=== PATIENT | male | born 1955 | race Caucasian/White ===

== ENCOUNTER 2024-08-30 15:47 | Emergency (ER) | payer OTHER, MEDICAID ==
[~2024-08-30] VITALS: Ht 170.2 cm; Wt 136.0 kg
[2024-08-30 15:49] VITALS: O2SAT 99
[2024-08-30 21:18] VITALS: BP 155/78; PULSE 59; RESP 16; TEMP 36.6; O2SAT 98
== END 2024-08-30 21:20 | disposition home or self-care (01) ==
LOC: ER 15:47
DX: S06.0XAA Concussion with loss of consciousness status unknown, initial encounter (principal); I10 Essential (primary) hypertension; E78.00 Pure hypercholesterolemia, unspecified; W14.XXXA Fall from tree, initial encounter; Y93.89 Activity, other specified; Y92.89 Other specified places as the place of occurrence of the external cause; Y99.8 Other external cause status
CPT/HCPCS: 99285; A4606